=== PATIENT | male | born 1990 | race Caucasian/White ===

== ENCOUNTER 2023-05-19 12:35 | Observation (INO) | payer OTHER, SELFPAY ==
[2023-05-19] VITALS (27 sets, daily range): BP systolic 99–123; BP diastolic 63–86; PULSE 57–112; RESP 13–24; TEMP 36.3–36.8; O2SAT 90–100; BMI 22.6; BMI 21.1
--- NOTE | 2023-05-19 12:46 | ECG_ITS ---
[facility] Test Date: 2023-05-19 Pat Name: NICHOLE CALDERON Department: Room: - Gender: Male Radiopharmacist: : 1990 Requested By: 1030 Order Number: [id number] Reading MD: HAMMAD GARDINER Measurements Intervals [place] Rate: 79 P: 46 MD: 120 QRS: 62 QRSD: 86 T: 72 QT: 400 QTc: 435 Interpretive Statements 1100 Sinus rhythm 1970 with occasional ectopic premature complexes 4164 Twave abnormality, possible anterior ischemia 9150 abnormal ECG No previous ECG available for comparison Electronically Signed On 05-20-2023 5:36:37 EDT by HAMMAD GARDINER
--- NOTE | 2023-05-19 12:48 | ED_ITS ---
HPI - Alcohol General Chief Complaint: Alcohol Stated Complaint: ALCOHOL INTOXICATION Time Seen by Provider: 05/19/23 12:37 Source: patient and other Source comment: EMS Mode of arrival: ambulance Limitations: no limitations History of Present Illness HPI narrative: 32-year-old male presents for alcohol issues. He was sent here from alcohol treatment center because he was shaky and a thought that he was going into delirium tremens. He last drank alcohol last night and that facility reported an alcohol level of 143 today. He states he might have some marijuana in him but no other drugs. He has some visual hallucinations but only when he closes his eyes. He does not complain of fever or headache. Related Data Allergies Allergy/AdvReac Type Severity Reaction Status Date / Time lorazepam [From Ativan] AdvReac Severe opposite Verified 05/19/23 12:37 affect Review of Systems ROS Narrative A ten point review of systems is negative except as noted above. PFSH PFS Social History Smoking status: Current every day smoker Exam Narrative Exam Narrative: Nurses note and vital signs reviewed and patient is not hypoxic. General: The patient appears anxious and is tremorous. Skin: Warm, dry, no pallor noted. There is no rash noted. Head: Normocephalic, atraumatic Eye: Normal conjunctiva, no drainage Ears, Nose, Mouth, and Throat: oral mucosa is moist. Nares patent. Cardiovascular: Regular Rate and Rhythm Respiratory: Patient is in no distress, no accessory muscle use, lungs are clear to auscultation, no wheezing, rales or rhonchi Back: non-tender GI: soft and nontender Musculoskeletal: The patient has no evidence of calf tenderness, no pitting edema, symmetrical pulses noted bilaterally Neurological: A&O x4, normal speech; tremorous Psychiatric: Cooperative Constitutional Vital Signs, click to edit/add: Last Vital Signs Temp 98.2 F 05/19/23 12:37 Pulse 75 05/19/23 12:37 Resp 22 05/19/23 12:37 BP 123/86 05/19/23 12:46 Pulse Ox 96 05/19/23 12:37 O2 Del Method Room Air 05/19/23 12:37 Course Vital Signs Vital signs: Vital Signs Temperature 98.2 F 05/19/23 12:37 Pulse Rate 75 05/19/23 12:37 Respiratory Rate 22 05/19/23 12:37 Blood Pressure 123/86 05/19/23 12:37 Pulse Oximetry 96 05/19/23 12:37 Oxygen Delivery Method Room Air 05/19/23 12:37 Temperature 98.2 F 05/19/23 12:37 Pulse Rate 75 05/19/23 12:37 Respiratory Rate 22 05/19/23 12:37 Blood Pressure 123/86 05/19/23 12:46 Pulse Oximetry 96 05/19/23 12:37 Oxygen Delivery Method Room Air 05/19/23 12:37 MDM - Alcohol MDM Narrative Medical decision making narrative: the patient was given IV fluids and IV Valium and seems to be somewhat improved. He still mildly tremorous. LFTs are essentially normal and he is being admitted. Findings are discussed with the patient. Differential Diagnosis Differential diagnosis: Likely alcohol withdrawal delirium, alcohol intoxication and alcohol withdrawal syndrome Lab Data Attestation: I reviewed the patient's lab results. Labs: Lab Results 05/19/23 Range/Units 12:46 WBC 15.0 H (4.0-11.0) 10^3/uL RBC 5.58 (4.70-6.10) 10^6/uL Hgb 17.7 (14.0-18.0) g/dL Hct 51.4 (42.0-54.0) % MCV 92.1 (80.0-94.0) fL MCH 31.7 (25.9-34.0) pg MCHC 34.4 (29.9-35.2) g/dL RDW 14.6 (11.0-15.0) % Plt Count 284 (150-450) 10^3/uL MPV 12.1 (9.5-13.5) fL Neut % (Auto) 76.5 H (43.0-75.0) % Lymph % (Auto) 16.0 L (20.5-60.0) % [place] % (Auto) 5.8 (1.7-12.0) % Eos % (Auto) 0.7 L (0.9-7.0) % Baso % (Auto) 0.7 (0.2-2.0) % Neut # (Auto) 11.5 H (1.4-6.5) 10^3/uL Lymph # (Auto) 2.4 (1.2-3.8) 10^3/uL [place] # (Auto) 0.9 H (0.3-0.8) 10^3/uL Eos # (Auto) 0.1 (0.0-0.7) 10^3/uL Baso # (Auto) 0.1 (0.0-0.1) 10^3/uL Abs Immat Gran (auto) 0.04 H (0.00-0.03) 10^3/uL Imm/Tot Granulo (auto) 0.3 (0.0-0.5) % Sodium 139 (136-145) mmol/L Potassium 4.3 (3.5-5.1) mmol/L Chloride 99 (98-107) mmol/L Carbon Dioxide 20.9 L (21.0-32.0) mmol/L Anion Gap 23.4 BUN 6.0 L (7.0-18.0) mg/dL Creatinine 0.90 (0.70-1.30) mg/dL Est GFR ( Amer) >60 (>=60) Est GFR (Non-Af Amer) >60 (>=60) BUN/Creatinine Ratio 6.7 Glucose 64 L (74-106) mg/dL Calcium 9.3 (8.5-10.1) mg/dL Total Bilirubin 0.6 (0.2-1.0) mg/dL Direct Bilirubin 0.2 (0.0-0.2) mg/dL AST 28 (15-37) U/L ALT 25 (16-63) U/L Alkaline Phosphatase 96 (46-116) U/L Total Protein 8.2 (6.4-8.2) g/dL Albumin 4.5 (3.4-5.0) g/dL Globulin 3.7 g/dL Albumin/Globulin Ratio 1.2 Ethanol Quant 146 mg/dL Imaging Data Chest x-ray: Radiologist's impression: Procedure: XR chest 1V EXAMINATION: XR chest 1V 05/19/2023 10:22 AM PDT HISTORY: alcohol withdrawal TECHNIQUE: Single frontal view of the chest acquired. COMPARISONS: None. FINDINGS: Lines/tubes/other: None. Heart and mediastinum: The heart and the mediastinum are within normal limits for technique. Bones: No acute osseous abnormality. Lungs: The lungs are clear. There is no evidence of pneumonia or pulmonary edema. Pleura: There is no significant pleural effusion or pneumothorax. Other: None. IMPRESSION: No acute cardiopulmonary abnormality. Electronically authenticated by: SHAKA LOMAS Date: 05/19/2023 13:23 ECG Data Attestation: I personally reviewed and interpreted this ECG as follows: (EKG on my interpretation shows normal sinus rhythm with a rate of 79.) Discharge Plan Discharge Chief Complaint: Alcohol Clinical Impression: Alcohol withdrawal delirium Patient Disposition: Admitted As Inpatient Time of Disposition Decision: 13:58 Condition: Fair
[2023-05-19] MEDS: 0.9 % SODIUM CHLORIDE 1,000 ML 1000 ML IV (12:52)
[2023-05-19] MEDS: ONDANSETRON PF 4 MG/2 ML VIAL IV ×2 (12:52→20:23)
--- NOTE | 2023-05-19 12:55 | XR_ITS ---
The [address] [address] Patient Name: NICHOLE CALDERON MRN: [id number] date: 1990 Sex: M Assigned Patient Location: ER Current Patient Location: ED.MAIN Accession/Order Number: [id number] Exam Date: 05/19/2023 12:50 Report Date: 05/19/2023 13:23 At the request of: BRYN BLAS Procedure: XR chest 1V EXAMINATION: XR chest 1V 05/19/2023 10:22 AM PDT HISTORY: alcohol withdrawal TECHNIQUE: Single frontal view of the chest acquired. COMPARISONS: None. FINDINGS: Lines/tubes/other: None. Heart and mediastinum: The heart and the mediastinum are within normal limits for technique. Bones: No acute osseous abnormality. Lungs: The lungs are clear. There is no evidence of pneumonia or pulmonary edema. Pleura: There is no significant pleural effusion or pneumothorax. Other: None. XR/XR chest 1V IMPRESSION: No acute cardiopulmonary abnormality. Electronically authenticated by: SHAKA LOMAS Date: 05/19/2023 13:23
[2023-05-19 13:12] LABS: Basophils Absolute Auto 0.1 10^3/uL (0.0-0.1); Basophils Percent Auto 0.7 % (0.2-2.0); Eosinophils Absolute Auto 0.1 10^3/uL (0.0-0.7); Eosinophils Percent Auto 0.7 % (0.9-7.0); Hematocrit 51.4 % (42.0-54.0); Hemoglobin 17.7 g/dL (14.0-18.0); Immature Granulocytes Abs Auto 0.04 10^3/uL (0.00-0.03); Immature Granulocytes Pct Auto 0.3 % (0.0-0.5); Lymphocytes Absolute Auto 2.4 10^3/uL (1.2-3.8); Mean Corpuscular HGB Conc 34.4 g/dL (29.9-35.2); Mean Corpuscular Hemoglobin 31.7 pg (25.9-34.0); Mean Corpuscular Volume 92.1 fL (80.0-94.0); Mean Platelet Volume 12.1 fL (9.5-13.5); Monocytes Absolute Auto 0.9 10^3/uL (0.3-0.8); Monocytes Percent Auto 5.8 % (1.7-12.0); Neutrophils Absolute Auto 11.5 10^3/uL (1.4-6.5); Neutrophils Percent Auto 76.5 % (43.0-75.0); Platelet Count 284 10^3/uL (150-450); Red Blood Count 5.58 10^6/uL (4.70-6.10); Red Cell Distribution Width 14.6 % (11.0-15.0)
[2023-05-19] MEDS: DIAZEPAM 5 MG/ML - 2 ML INJ SYRINGE 10 MG IV (13:21)
[2023-05-19 13:23] LABS: Anion Gap 23.4; BUN Creatinine Ratio 6.7; Calcium 9.3 mg/dL (8.5-10.1); Carbon Dioxide 20.9 mmol/L (21.0-32.0); Chloride 99 mmol/L (98-107); Estimated GFR (African America >60 (>=60); Estimated GFR (Non-African Ame >60 (>=60); Ethanol 146 mg/dL; Glucose 64 mg/dL (74-106); Potassium 4.3 mmol/L (3.5-5.1); Sodium 139 mmol/L (136-145)
[2023-05-19 13:25] LABS: Alanine Aminotransferase 25 U/L (16-63); Albumin Globulin Ratio 1.2; Albumin Level 4.5 g/dL (3.4-5.0); Alkaline Phosphatase 96 U/L (46-116); Aspartate Amino Transferase 28 U/L (15-37); Bilirubin Direct 0.2 mg/dL (0.0-0.2); Bilirubin Total 0.6 mg/dL (0.2-1.0); Globulin 3.7 g/dL; Total Protein 8.2 g/dL (6.4-8.2)
--- NOTE | 2023-05-19 15:20 | SWNOTE1 ---
SW spoke to nursing and pt is from [facility].
[2023-05-19] MEDS: 0.9 % SODIUM CHLORIDE 1,000 ML 200 ML IV (15:29)
[2023-05-19 15:55] LABS: Amylase 39 U/L (25-115)
[2023-05-19] MEDS: CLORDIAZEPOXIDE HCl 25 MG CAPSULE PO ×2 (15:57→20:23)
[2023-05-19] MEDS: HYOSCYAMINE SULFATE 0.125 MG TAB.SUBL PO ×2 (15:57→21:30)
--- NOTE | 2023-05-19 16:06 | P.HP_ITS ---
H&P: HPI History of Present Illness Chief complaint: ALCOHOL INTOXICATION, ALCOHOL WITHDRAWAL Narrative: Patient who is desiring to seek alcohol abuse treatment. Is a patient currently at [facility]. Unable to control his symptoms there. Was seen and evaluated in the emergency room given multiple medications to try to improve his alcohol withdrawal symptoms. Unable to complete that in the emergency room was that this was admitted for work-up and treatment of same. Review of Systems ROS Status of ROS 10 or more systems reviewed and unremarkable except as noted in history and below PFSH PFSH Social History Smoking status: Current every day smoker Meds Home Medications and Allergies Allergies Allergy/AdvReac Type Severity Reaction Status Date / Time lorazepam [From Ativan] AdvReac Severe opposite Verified 05/19/23 12:37 affect Exam Constitutional Vital Signs, click to edit/add: Last Vital Signs Temp 98.3 F 05/19/23 15:26 Pulse 69 05/19/23 15:26 Resp 16 05/19/23 15:26 BP 114/79 05/19/23 15:26 Pulse Ox 95 05/19/23 15:26 O2 Del Method Room Air 05/19/23 15:26 Documenting provider has reviewed patient's vital signs: yes Common normals: apparent distress Respiratory Common normals: normal respiratory effort, no use of accessory muscles and clear to auscultation bilaterally Cardio Common normals: regular rate, regular rhythm and no murmurs GI Common normals: Normal to inspection, nondistended, normoactive bowel sounds present Neuro Common normals: oriented x3 (Agitated, clearly with some withdrawal symptoms) Results Labs Labs: Short CBC 05/19/23 Range/Units 12:46 WBC 15.0 H (4.0-11.0) 10^3/uL Hgb 17.7 (14.0-18.0) g/dL Hct 51.4 (42.0-54.0) % Plt Count 284 (150-450) 10^3/uL BMP 05/19/23 12:46 Sodium 139 Potassium 4.3 Chloride 99 Carbon Dioxide 20.9 L BUN 6.0 L Creatinine 0.90 Glucose 64 L Calcium 9.3 Liver Function 05/19/23 Range/Units 12:46 Total Bilirubin 0.6 (0.2-1.0) mg/dL Direct Bilirubin 0.2 (0.0-0.2) mg/dL AST 28 (15-37) U/L ALT 25 (16-63) U/L Alkaline Phosphatase 96 (46-116) U/L Albumin 4.5 (3.4-5.0) g/dL Assessment and Plan Assessment and Plan (1) Alcohol withdrawal delirium: Plan Medical hold abuse, patient has been through this before. Was clean for over a year. I think he is well motivated for success. [facility] protocol in place. IV fluids. He has some mild hypoglycemia in the emergency room. Dehydration secondary to alcohol abuse-continue with hydration as above, monitor labs
[2023-05-19 16:15] LABS: Lactate/Lactic Acid 6.5 mmol/L (0.4-2.0)
--- NOTE | 2023-05-19 16:32 | SWNOTE1 ---
JORDY spoke with pt for 15 minutes. He just got to [id number] today. He lives 3 hours from here. Pt had a relapse about a month ago after he broke with with girlfriend. He started just having a drink a day which turned in to several. Pt started making phone calls as he new he needed help and ended up talking with Jeronimo at [facility] and they took him. Pt's mother not long ago from alcohol withdrawal and his brother of overdose and so did his sister. He has one brother who is clean and sober who is good support for him. Pt is very, very knowledgeable when it comes to alcoholism. 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 His plan is to return to [facility] at discharge. Pt has been dealing with alcoholism for 15 years, he stayed sober for a year and half recently but then the break up caused him to drink.
[2023-05-19] MEDS: THIAMINE MONONITRATE (VIT B1) 100 MG TABLET PO (17:56)
[2023-05-19] MEDS: NICOTINE 21 MG PATCH TD (17:56)
[2023-05-19] MEDS: DIAZEPAM 5 MG/ML - 2 ML INJ SYRINGE IV ×2 (17:56→21:29)
[2023-05-19 18:57] LABS: Lactate/Lactic Acid 3.1 mmol/L (0.4-2.0)
[2023-05-19] MEDS: CLONIDINE HCL 0.1 MG TABLET PO (20:23)
[2023-05-19] MEDS: ROPINIROLE HCL 0.25 MG TABLET PO (21:30)
[2023-05-19 22:05] LABS: Lactate/Lactic Acid 0.7 mmol/L (0.4-2.0)
[2023-05-20] VITALS (21 sets, daily range): BP systolic 108–119; BP diastolic 72–79; PULSE 42–93; RESP 14–18; TEMP 36.5–36.8; O2SAT 50–99; BMI 21.1
[2023-05-20] MEDS: CLORDIAZEPOXIDE HCl 25 MG CAPSULE PO (04:49)
[2023-05-20] MEDS: ROPINIROLE HCL 0.25 MG TABLET PO ×3 (05:03→22:39)
[2023-05-20 05:34] LABS: Basophils Absolute Auto 0.1 10^3/uL (0.0-0.1); Basophils Percent Auto 0.8 % (0.2-2.0); Eosinophils Absolute Auto 0.3 10^3/uL (0.0-0.7); Eosinophils Percent Auto 3.2 % (0.9-7.0); Hematocrit 44.8 % (42.0-54.0); Hemoglobin 14.8 g/dL (14.0-18.0); Immature Granulocytes Abs Auto 0.03 10^3/uL (0.00-0.03); Immature Granulocytes Pct Auto 0.3 % (0.0-0.5); Lymphocytes Absolute Auto 1.5 10^3/uL (1.2-3.8); Lymphocytes Percent Auto 16.8 % (20.5-60.0); Mean Corpuscular Hemoglobin 31.3 pg (25.9-34.0); Mean Corpuscular Volume 94.7 fL (80.0-94.0); Mean Platelet Volume 12.1 fL (9.5-13.5); Monocytes Absolute Auto 0.9 10^3/uL (0.3-0.8); Monocytes Percent Auto 9.4 % (1.7-12.0); Neutrophils Absolute Auto 6.4 10^3/uL (1.4-6.5); Neutrophils Percent Auto 69.5 % (43.0-75.0); Platelet Count 226 10^3/uL (150-450); Red Blood Count 4.73 10^6/uL (4.70-6.10); Red Cell Distribution Width 14.3 % (11.0-15.0); White Blood Count 9.1 10^3/uL (4.0-11.0)
[2023-05-20 05:39] LABS: Anion Gap 10.4; BUN Creatinine Ratio 8.4; Calcium 8.1 mg/dL (8.5-10.1); Carbon Dioxide 25.7 mmol/L (21.0-32.0); Chloride 105 mmol/L (98-107); Estimated GFR (African America >60 (>=60); Estimated GFR (Non-African Ame >60 (>=60); Glucose 98 mg/dL (74-106); Potassium 4.1 mmol/L (3.5-5.1); Sodium 137 mmol/L (136-145)
[2023-05-20] MEDS: MULTIVITAMIN TABLET 1 TAB PO (09:08)
[2023-05-20] MEDS: CLONIDINE HCL 0.1 MG TABLET PO ×2 (09:08→20:43)
[2023-05-20] MEDS: THIAMINE MONONITRATE (VIT B1) 100 MG TABLET PO (09:08)
[2023-05-20] MEDS: HYOSCYAMINE SULFATE 0.125 MG TAB.SUBL PO ×4 (09:08→22:39)
--- NOTE | 2023-05-20 09:30 | P.PN_ITS ---
Progress Note: Subjective Subjective Interval history: Still feeling some agitation. Required IV Valium. Patient unable to be discharged to rehab Exam Constitutional Vital Signs, click to edit/add: Last Vital Signs Temp 98.3 F 05/20/23 04:35 Pulse 47 L 05/20/23 08:00 Resp 14 05/20/23 04:35 BP 108/72 05/20/23 04:35 Pulse Ox 99 05/20/23 04:56 O2 Del Method Room Air 05/20/23 04:56 Documenting provider has reviewed patient's vital signs: yes Common normals: apparent distress Respiratory Common normals: normal respiratory effort, no use of accessory muscles and clear to auscultation bilaterally Cardio Common normals: regular rate, regular rhythm and no murmurs GI Common normals: Normal to inspection, nondistended, normoactive bowel sounds present Neuro Common normals: oriented x3 (Agitated, clearly with some withdrawal symptoms) Progress Note: Objective Labs Labs: Short CBC 05/19/23 05/20/23 Range/Units 12:46 04:53 WBC 15.0 H 9.1 (4.0-11.0) 10^3/uL Hgb 17.7 14.8 (14.0-18.0) g/dL Hct 51.4 44.8 (42.0-54.0) % Plt Count 284 226 (150-450) 10^3/uL BMP 05/19/23 05/20/23 12:46 04:11 Sodium 139 137 Potassium 4.3 4.1 Chloride 99 105 Carbon Dioxide 20.9 L 25.7 BUN 6.0 L 7.0 Creatinine 0.90 0.83 Glucose 64 L 98 Calcium 9.3 8.1 L Liver Function 05/19/23 Range/Units 12:46 Total Bilirubin 0.6 (0.2-1.0) mg/dL Direct Bilirubin 0.2 (0.0-0.2) mg/dL AST 28 (15-37) U/L ALT 25 (16-63) U/L Alkaline Phosphatase 96 (46-116) U/L Albumin 4.5 (3.4-5.0) g/dL Progress Note: A&P Assessment and Plan (1) Alcohol withdrawal delirium: Plan Alcohol abuse abuse, now with delirium tremens with hallucinations, -continue with current medications but adjust doses. Reviewed phenobarbital protocol with rehabilitation facility will institute that today. Dehydration secondary to alcohol abuse-continue with hydration as above, monitor labs Leukocytosis-resolved Hypocalcemia-supplement ?
--- NOTE | 2023-05-20 09:37 | CM.NOTE ---
Rounds made with Dr. Bran, no discharge today. Possible discharge tomorrow to [facility].
[2023-05-20] MEDS: CLORDIAZEPOXIDE HCl 25 MG CAPSULE 50 MG PO ×6 (11:07→23:27)
[2023-05-20] MEDS: PHENobarbitaL 32.4 MG TABLET 97.2 MG PO ×2 (13:31→21:01)
--- NOTE | 2023-05-20 13:33 | CM.NOTE ---
Talked with pt about discharge plan and going to [facility] at discharge. Pt states I don't want to go back to [facility], its not a good choice for me being this far away from home. Pt states he did not realize the program was 30 days. Listened to pt's frustrations and pt also feeling like his tremors have increase and he is hallucinating. Pt also verbalizes the dose of phenobarbital Dr. Bran ordered is incorrect for withdraw. Explained to pt I would reach out to [facility] for phenobarbital katy and then reach out to Dr. Bran for change in dose. Talked with Jeronimo and Ronal from [facility] and received katy of medication per [facility] protocol. Reached out to Dr. Bran, new orders received. Went back in to discuss changes with pt, pt tearful but in agreement to speak with Jeronimo from [facility] and continue this detox process. Support provided for pt, pt thankful for the help. Jeronimo from [facility] did reach out to pt per telephone to help pt's anxiety of the unknown of treatment plan.
--- NOTE | 2023-05-20 17:08 | NUTR.NU ---
Dietary consult completed this morning. PO intakes have improved to 100%, and lab results show significant improvement. All nutritional labs drawn today are WNL except Ca++ is low. Recommend MVI w/minerals, 1 PO daily. Will continue to follow PRN.
--- NOTE | 2023-05-20 17:11 | DIETREC ---
Recommend MVI w/minerals 1x daily to ensure adequate micronutrient intakes; may replace MVI w/folate and thiamine per physician discretion.
[2023-05-20] MEDS: NICOTINE 21 MG PATCH TD (17:13)
[2023-05-20] MEDS: CALCIUM CARBONATE 500 MG (200MG ELEMENTAL) TAB CHEW PO (22:39)
[2023-05-21] VITALS (7 sets, daily range): BP systolic 114; BP diastolic 80; PULSE 40–78; RESP 16; TEMP 36.4; O2SAT 94–97
[2023-05-21] MEDS: CLORDIAZEPOXIDE HCl 25 MG CAPSULE 50 MG PO ×4 (01:44→08:07)
[2023-05-21] MEDS: PHENobarbitaL 32.4 MG TABLET 97.2 MG PO (05:45)
[2023-05-21] MEDS: ROPINIROLE HCL 0.25 MG TABLET PO (05:45)
[2023-05-21] MEDS: CALCIUM CARBONATE 500 MG (200MG ELEMENTAL) TAB CHEW PO (05:46)
[2023-05-21 05:52] LABS: Anion Gap 12.2; BUN Creatinine Ratio 7.9; Carbon Dioxide 24.5 mmol/L (21.0-32.0); Chloride 107 mmol/L (98-107); Estimated GFR (African America >60 (>=60); Estimated GFR (Non-African Ame >60 (>=60); Glucose 183 mg/dL (74-106); Potassium 3.7 mmol/L (3.5-5.1); Sodium 140 mmol/L (136-145)
[2023-05-21 05:58] LABS: Basophils Percent Auto 0.4 % (0.2-2.0); Eosinophils Absolute Auto 0.3 10^3/uL (0.0-0.7); Eosinophils Percent Auto 2.3 % (0.9-7.0); Hematocrit 40.2 % (42.0-54.0); Hemoglobin 13.6 g/dL (14.0-18.0); Immature Granulocytes Abs Auto 0.02 10^3/uL (0.00-0.03); Immature Granulocytes Pct Auto 0.2 % (0.0-0.5); Lymphocytes Absolute Auto 1.9 10^3/uL (1.2-3.8); Lymphocytes Percent Auto 17.7 % (20.5-60.0); Mean Corpuscular HGB Conc 33.8 g/dL (29.9-35.2); Mean Corpuscular Hemoglobin 32.9 pg (25.9-34.0); Mean Corpuscular Volume 97.1 fL (80.0-94.0); Mean Platelet Volume 13.4 fL (9.5-13.5); Monocytes Absolute Auto 0.7 10^3/uL (0.3-0.8); Monocytes Percent Auto 6.6 % (1.7-12.0); Neutrophils Absolute Auto 7.8 10^3/uL (1.4-6.5); Neutrophils Percent Auto 72.8 % (43.0-75.0); Platelet Count 188 10^3/uL (150-450); Red Blood Count 4.14 10^6/uL (4.70-6.10); Red Cell Distribution Width 14.3 % (11.0-15.0); White Blood Count 10.7 10^3/uL (4.0-11.0)
[2023-05-21] MEDS: THIAMINE MONONITRATE (VIT B1) 100 MG TABLET PO (08:07)
[2023-05-21] MEDS: MULTIVITAMIN TABLET 1 TAB PO (08:07)
[2023-05-21] MEDS: CLONIDINE HCL 0.1 MG TABLET PO (08:07)
[2023-05-21] MEDS: HYOSCYAMINE SULFATE 0.125 MG TAB.SUBL PO (08:09)
--- NOTE | 2023-05-21 08:33 | CM.NOTE ---
Rounds made with Dr. Bran, discussed discharge back to [facility] today. Pt in agreement and is feeling better this AM, not as shaky and decreased hallucinations.
--- NOTE | 2023-05-21 08:57 | P.DS_ITS ---
DS: Providers Provider Date of admission: 05/19/23 14:15 Primary care physician: Non-Staff PhysicianMD Consults: 05/19/23 Consult to Dietitian Routine Reason For Exam: screening Reason for consultation: weight loss Consult to Manager Pediatric Routine Reason for consult:: Drug Abuse Food/Nutrition DS: Diagnosis Discharge Diagnosis (1) Alcohol withdrawal delirium: [place] [address] Progress Note Signed Patient: NICHOLE CALDERON MR#: [id number] : 1990 Acct:[id number] Age/Sex: 32 / M ADM Date: 05/19/23 Loc: MS 216-1 Date of Service: 05/20/23Attending Dr: Edwardo Bran M.D. cc: Edwardo Bran M.D.; Physician,Hao Marvin~ Progress Note: Subjective Subjective Interval history: Still feeling some agitation. Required IV Valium. Patient unable to be discharged to rehab Exam Constitutional Vital Signs, click to edit/add: Last Vital Signs Temp 98.3 F 05/20/23 04:35 Pulse 47 L 05/20/23 08:00 Resp 14 05/20/23 04:35 BP 108/72 05/20/23 04:35 Pulse Ox 99 05/20/23 04:56 O2 Del Method Room Air 05/20/23 04:56 Documenting provider has reviewed patient's vital signs: yes Common normals: apparent distress Respiratory Common normals: normal respiratory effort, no use of accessory muscles and clear to auscultation bilaterally Cardio Common normals: regular rate, regular rhythm and no murmurs GI Common normals: Normal to inspection, nondistended, normoactive bowel sounds present Neuro Common normals: oriented x3 (Agitated, clearly with some withdrawal symptoms) Progress Note: Objective Labs Labs: Short CBC 05/19/23 05/20/23 Range/Units 12:46 04:53 WBC 15.0 H 9.1 (4.0-11.0) 10^3/uL Hgb 17.7 14.8 (14.0-18.0) g/dL Hct 51.4 44.8 (42.0-54.0) % Plt Count 284 226 (150-450) 10^3/uL BMP 05/19/23 05/20/23 12:46 04:11 Sodium 139 137 Potassium 4.3 4.1 Chloride 99 105 Carbon Dioxide 20.9 L 25.7 BUN 6.0 L 7.0 Creatinine 0.90 0.83 Glucose 64 L 98 Calcium 9.3 8.1 L Liver Function 05/19/23 Range/Units 12:46 Total Bilirubin 0.6 (0.2-1.0) mg/dL Direct Bilirubin 0.2 (0.0-0.2) mg/dL AST 28 (15-37) U/L ALT 25 (16-63) U/L Alkaline Phosphatase 96 (46-116) U/L Albumin 4.5 (3.4-5.0) g/dL Progress Note: A&P Assessment and Plan (1) Alcohol withdrawal delirium: Plan Alcohol abuse abuse, now with delirium tremens with hallucinations, -continue with current medications but adjust doses. Reviewed phenobarbital protocol with rehabilitation facility will institute that today. Dehydration secondary to alcohol abuse-continue with hydration as above, monitor labs Leukocytosis-resolved Hypocalcemia-supplement DS: Summary Hospital Course Hospital Course: Patient was admitted with a significant elevated alcohol of over 100, started having withdrawals even at that level. Patient was placed on the CIWA scale. IV fluids for dehydration. Patient started having some hallucinations the following day, medications were adjusted with the addition of phenobarbital. Patient does appear to be much improved today. No further hallucinations. He has not required any IV Ativan. Case will be discussed with the inpatient alcohol rehab center, if they are comfortable with him returning as is he can be discharged home to their today. Medications see list. Follow-up with his PCP after discharge from inpatient alcohol rehab Time Spent with Patient Time attestation: Total time spent providing and/or coordinating discharge services: Exam Constitutional Vital Signs, click to edit/add: Last Vital Signs Temp 97.5 F L 05/21/23 05:41 Pulse 75 05/21/23 08:04 Resp 16 05/21/23 05:41 BP 114/80 05/21/23 05:41 Pulse Ox 94 L 05/21/23 05:41 O2 Del Method Room Air 05/21/23 05:41 Documenting provider has reviewed patient's vital signs: yes Common normals: apparent distress Respiratory Common normals: normal respiratory effort, no use of accessory muscles and clear to auscultation bilaterally Cardio Common normals: regular rate, regular rhythm and no murmurs GI Common normals: Normal to inspection, nondistended, normoactive bowel sounds present Neuro Common normals: oriented x3 (Agitated, clearly with some withdrawal symptoms) DS: Data Data Completed and Pending Labs on day of discharge: Labs from last 24 hours 05/21/23 04:30 WBC 10.7 RBC 4.14 L Hgb 13.6 L Hct 40.2 L MCV 97.1 H MCH 32.9 MCHC 33.8 RDW 14.3 Plt Count 188 MPV 13.4 Neut % (Auto) 72.8 Lymph % (Auto) 17.7 L [place] % (Auto) 6.6 Eos % (Auto) 2.3 Baso % (Auto) 0.4 Neut # (Auto) 7.8 H Lymph # (Auto) 1.9 [place] # (Auto) 0.7 Eos # (Auto) 0.3 Baso # (Auto) 0.0 Abs Immat Gran (auto) 0.02 Imm/Tot Granulo (auto) 0.2 Sodium 140 Potassium 3.7 Chloride 107 Carbon Dioxide 24.5 Anion Gap 12.2 BUN 6.0 L Creatinine 0.76 Est GFR ( Amer) >60 Est GFR (Non-Af Amer) >60 BUN/Creatinine Ratio 7.9 Glucose 183 H Calcium 8.0 L Discharge Plan Discharge Disposition: Xfer Inpatient Rehab Fac Condition: Fair Social Media Assistant/Welt Sole Layer Instructions: Patient is returning to [facility] in [place]. Forms: Portal Instructions Follow Up Appointments: Follow up care per [facility] facility Discharge Date/Time: 05/21/23 10:13
--- NOTE | 2023-05-21 09:32 | SWNOTE1 ---
Pt is ready for discharge today, SW to call [facility].
--- NOTE | 2023-05-21 09:36 | SWNOTE1 ---
SW spoke to [facility] and they will be here within half hour to get patient. SW let nursing know.
== END 2023-05-21 10:13 ==
LOC: ER 13:58 → MS 05-20 07:19 → ER 05-20 08:23 → MS 05-20 08:23
PROVIDERS: Admitting Provider Family Medicine; Emergency Provider Emergency Medicine; Visit Provider Family Medicine
DX: F10.131 Alcohol abuse with withdrawal delirium (principal); E86.0 Dehydration; D72.829 Elevated white blood cell count, unspecified; E83.51 Hypocalcemia; Y90.6 Blood alcohol level of 120-199 mg/100 ml; F17.210 Nicotine dependence, cigarettes, uncomplicated
CPT/HCPCS: 36415; 71045; 80048; 80076; 80320; 81001; 82150; 83605; 83690; 85025; 93005; 94667; 94668; 94761; 96374; 96375; 96376; 99285; G0378